=== PATIENT | male | born 1975 | race Caucasian/White ===

== ENCOUNTER 2019-07-07 15:12 | Emergency (ER) | payer MEDICAID ==
[~2019-07-07] VITALS: Ht 172.7 cm; Wt 77.1 kg
[2019-07-07 15:20] VITALS: BP 173/73
--- NOTE | 2019-07-07 15:20 | NUR ---
ED Nurse Note: Patient arrived to ED by ambulance from home. Per EMS, the patient's mother called 911 because her son drank a very large volume of alcohol. Per EMS, they saw 2 large empty bottles of alcohol at the patient's house. Patient AXO x 1, responds to name, follows commands, but does not know where he is. Patient was crying loudly upon arrival. Now he is restless, alternating from falling asleep and trying to get out of bed. Patient verbally redirected as needed, ensuring he stays in bed. Patient on the quality assurance monitor body, bed in lowest position. Blood and urine sent to lab.
[2019-07-07] MEDS ORDERED: Thiamine HCl 100 MG in D5W 55 ML IVPB ONE (15:30)
[2019-07-07] MEDS ORDERED: NOVOLIN 70/305 UNIT1 SUBQ ×2 (15:33)
[2019-07-07 15:43] LABS: BASOPHILS % (AUTO) 1.1 % (0.0-2.0); EOSINOPHILS % (AUTO) 1.5 % (0.0-3.0); HEMATOCRIT 36.4 % (42.0-52.0); LYMPHOCYTES % (AUTO) 17.8 % (20.0-45.0); MEAN CORPUSCULAR VOLUME 85 FL (80-99); NEUTROPHILS % (AUTO) 66.5 % (45.0-75.0); PLATELET COUNT 302 K/UL (150-450); RED BLOOD COUNT 4.26 M/UL (4.70-6.10)
--- NOTE | 2019-07-07 15:51 | Emergency Room Report ---
History of Present Illness General Chief Complaint: Alcohol Intoxication Source: Patient Present Illness HPI Patient is a 43-year-old male brought in by EMS after increased altered mental status. Patient had been drinking alcohol heavily earlier in the day. A prior history of heavy alcohol abuse. History is markedly limited by patient's alcohol intoxication. He reports drinking alcohol heavily. He does not recall any recent head trauma. Allergies: Coded Allergies: No Known Allergies (Unverified , 07/07/19) Patient History Past Medical History: see triage record Reviewed Nursing Documentation: PMH: Agreed; PSxH: Agreed Nursing Documentation-PMH Past Medical History Deferred: Pt Cognitively Impaired Review of Systems All Other Systems: negative except mentioned in HPI Physical Exam Vital Signs Date Time Temp Pulse Resp B/P (MAP) Pulse Ox O2 Delivery O2 Flow Rate FiO2 07/07/19 15:08 97.5 121 8 129/82 (98) 97 Room Air Sp02 EP Interpretation: reviewed, normal General Appearance: normal inspection, well appearing, no apparent distress, alert, GCS 15 Head: atraumatic ENT: normal ENT inspection, hearing grossly normal, normal voice Neck: normal inspection, full range of motion, supple, no bony tend Respiratory: normal inspection, lungs clear, normal breath sounds, no respiratory distress, no retraction, no wheezing Cardiovascular #1: regular rate, rhythm, no edema Gastrointestinal: normal inspection, normal bowel sounds, non tender, soft, no guarding, no hernia Genitourinary: no CVA tenderness Musculoskeletal: normal inspection, back normal, normal range of motion Neurologic: normal inspection, alert, responsive, speech normal Psychiatric: normal inspection, judgement/insight normal, mood/affect normal Medical Decision Making Diagnostic Impression: Primary Impression: Acute alcoholic intoxication ER Course Patient presented for altered mental status. Differential diagnosis include was not limited to alcohol intoxication, overdose, medication withdrawal among others. Because of complexity of patient's case laboratory tests and imaging studies were ordered. Patient was noted to be initially tachycardic. Laboratory testing were ordered. EKG interpreted by me showed sinus tachycardia without acute ST changes. Patient's QT interval was slightly prolonged and patient was given IV magnesium. Patient was also given IV thiamine. Patient was noted to be clinically intoxicated at this time. Patient was discussed with his previous health unit coordinator at [facility] and patient will be accepted as transfer when sober. Patient will be accepted by . Patient was noted to have some improvement in mental status.Patient will be transferred for rehab. Labs Test 07/07/19 15:20 White Blood Count 8.0 K/UL (4.8-10.8) Red Blood Count 4.26 M/UL (4.70-6.10) Hemoglobin 13.0 G/DL (14.2-18.0) Hematocrit 36.4 % (42.0-52.0) Mean Corpuscular Volume 85 FL (80-99) Mean Corpuscular Hemoglobin 30.5 PG (27.0-31.0) Mean Corpuscular Hemoglobin Concent 35.7 G/DL (32.0-36.0) Red Cell Distribution Width 12.0 % (11.6-14.8) Platelet Count 302 K/UL (150-450) Mean Platelet Volume 5.5 FL (6.5-10.1) Neutrophils (%) (Auto) 66.5 % (45.0-75.0) Lymphocytes (%) (Auto) 17.8 % (20.0-45.0) Monocytes (%) (Auto) 13.0 % (1.0-10.0) Eosinophils (%) (Auto) 1.5 % (0.0-3.0) Basophils (%) (Auto) 1.1 % (0.0-2.0) Prothrombin Time 9.4 SEC (9.30-11.50) Prothromb Time International Ratio 0.9 (0.9-1.1) Activated Partial Thromboplast Time 26 SEC (23-33) Sodium Level 134 MMOL/L (136-145) Potassium Level 3.5 MMOL/L (3.5-5.1) Chloride Level 102 MMOL/L (98-107) Carbon Dioxide Level 26 MMOL/L (21-32) Anion Gap 6 mmol/L (5-15) Blood Urea Nitrogen 14 mg/dL (7-18) Creatinine 0.6 MG/DL (0.55-1.30) Estimat Glomerular Filtration Rate > 60 mL/min (>60) Glucose Level 120 MG/DL (74-106) Calcium Level 8.6 MG/DL (8.5-10.1) Total Bilirubin 0.4 MG/DL (0.2-1.0) Aspartate Amino Transf (AST/SGOT) 134 U/L (15-37) Alanine Aminotransferase (ALT/SGPT) 111 U/L (12-78) Alkaline Phosphatase 189 U/L (46-116) Troponin I 0.000 ng/mL (0.000-0.056) Total Protein 6.7 G/DL (6.4-8.2) Albumin 3.3 G/DL (3.4-5.0) Globulin 3.4 g/dL Albumin/Globulin Ratio 1.0 (1.0-2.7) Lipase 192 U/L (73-393) Thyroid Stimulating Hormone (TSH) 1.146 uiU/mL (0.358-3.740) Salicylates Level 0.9 ug/mL (2.8-20) Serum Alcohol 387 mg/dL EKG Diagnostic Results Rate: tachycardiac - 118 Rhythm: NSR ST Segments: no acute changes Last Vital Signs Date Time Temp Pulse Resp B/P (MAP) Pulse Ox O2 Delivery O2 Flow Rate FiO2 07/07/19 15:08 97.5 121 8 129/82 (98) 97 Room Air Status: improved Disposition: XFER SHT-TRM HOSP Condition: Stable Scripts Unable to Obtain Active Prescriptions or Reported Meds Patient Instructions: Hyperglycemia Danny Burgess MD Jul 07, 2019 15:51
[2019-07-07 15:56] LABS: INR 0.9 (0.9-1.1)
[2019-07-07 15:58] LABS: ANION GAP 6 mmol/L (5-15); BLOOD UREA NITROGEN 14 mg/dL (7-18); CALCIUM 8.6 MG/DL (8.5-10.1); CARBON DIOXIDE 26 MMOL/L (21-32); CHLORIDE 102 MMOL/L (98-107); CREATININE 0.6 MG/DL (0.55-1.30); POTASSIUM 3.5 MMOL/L (3.5-5.1); SODIUM 134 MMOL/L (136-145)
[2019-07-07 16:09] LABS: ALANINE AMINOTRANSFERASE 111 U/L (12-78); ALBUMIN 3.3 G/DL (3.4-5.0); ALKALINE PHOSPHATASE 189 U/L (46-116); ASPARTATE AMINO TRANSFERASE 134 U/L (15-37); BILIRUBIN,TOTAL 0.4 MG/DL (0.2-1.0)
--- NOTE | 2019-07-07 16:50 | NUR ---
ED Nurse Note: pt taken to CT scan in stable condition.
--- NOTE | 2019-07-07 17:00 | NUR ---
ED Nurse Note: pt came back from CT in stable condition.
--- NOTE | 2019-07-07 17:10 | NUR ---
Jose G strong in EDM - 07/07/19 at 1724 by [email or web address] ED Nurse Note: pt's mother came and staying at bedside.
[2019-07-07 17:15] VITALS: BP 125/70
--- NOTE | 2019-07-07 17:15 | NUR ---
ED Nurse Note: Patient's mother Petra at bedside.
--- NOTE | 2019-07-07 17:23 | NUR ---
ED Nurse Note: ERMD at bedside speaking to pt and mother.
--- NOTE | 2019-07-07 17:24 | Diagnostic Imaging Report ---
Indications: Altered mental status Technique: Spiral acquisitions obtained through the brain. Angled axial and coronal 5 x 5 mm slices were reconstructed. Total dose length product 1394 mGycm. CTDI vol(s) 60 mGy. Dose reduction achieved using automated exposure control Comparison: None. Findings: No acute intracranial hemorrhage or edema. No mass effect nor midline shift. Normal harris-white differentiation. The right maxillary sinus is opacified. The right ethmoid sinuses are opacified The mastoids are clear. The orbits are unremarkable. Impression: Negative for acute intracranial bleed or mass effect Sinus disease This agrees with the preliminary interpretation provided overnight by [facility]. The CT scanner at [facility] is accredited by the [employer] and the scans are performed using protocols designed to limit radiation exposure to as low as reasonably achievable to attain images of sufficient resolution adequate for diagnostic evaluation.
--- NOTE | 2019-07-07 18:18 | NUR ---
ED Nurse Note: MALATHID speaking pt and mother about transferring plan.
--- NOTE | 2019-07-07 19:12 | NUR ---
HAND-OFF: Report given to DEBRA Alfaro. no orders to carry at this moment. waiting for the pt to be sober. mother at bedside.
--- NOTE | 2019-07-07 21:41 | NUR ---
ED Nurse Note: Pt with .
--- NOTE | 2019-07-07 22:43 | NUR ---
ED Nurse Note: Pt with family at bedside. Pt is restless with no acute distress.
[2019-07-07 22:44] VITALS: BP 130/75
--- NOTE | 2019-07-07 23:01 | NUR ---
ED Nurse Note: report given to DEBRA Isbell from [facility].
[2019-07-08 00:04] VITALS: BP 132/76
--- NOTE | 2019-07-08 00:04 | NUR ---
ER DISCHARGE NOTE: Patient is cleared to be discharged per ERMD, pt is aox4, on room air, with stable vital signs. pt was given dc instructions, pt was able to verbalize understanding, pt id band and iv site removed without complications. pt is with ambulance. pt took all belongings.
--- NOTE | 2019-07-10 15:37 | Cardiology Report ---
APPROVED REPORT EKG Measurement Heart [id number] Sinus tachycardia Inferior infarct, age undetermined Cannot rule out Anterior infarct, age undetermined Abnormal ECG
== END 2019-07-08 00:04 | disposition short-term general hospital (02) ==
LOC: EDBD 15:12 → EMR 15:27
DX: F10.129 Alcohol abuse with intoxication, unspecified (principal); Y90.8 Blood alcohol level of 240 mg/100 ml or more
CPT/HCPCS: 36415; 70450; 80053; 83690; 84443; 84484; 85025; 85610; 85730; 93005; 96365; 96367; G0480; G0481; Z7502; 99284; J7030